=== PATIENT | male | born 1970 | race Caucasian/White ===

== ENCOUNTER 2018-05-26 08:42 | Emergency (ER) | payer BC ==
[2018-05-26] MEDS ORDERED: Lidocaine 1% 20 ML MDV INJECT ONE (09:03)
[2018-05-26] MEDS ORDERED: Diphtheria,Pertussis(Acell),Tetanus Vaccine 0.5 ML Syringe IM ONE (09:04)
[2018-05-26] MEDS ORDERED: Bacitracin/Neomycin/Polymyxin B Oint 0.9 GM U/D Packet TOP ONE (09:23)
--- NOTE | 2018-05-26 09:28 | EDM.PDOC ---
ED HPI GENERAL MEDICAL PROBLEM - General Chief Complaint: Laceration Stated Complaint: cut to right index finger Time Seen by Provider: 05/26/18 09:07 Source of Information: Reports: Patient History Limitations: Reports: No Limitations - History of Present Illness INITIAL COMMENTS - FREE TEXT/NARRATIVE: Patient presents to ER with a laceration to his right index finger. He was pulling on a throttle when the plastic piece came back and cut his hand. Has good range of motion with his finger, good sensation. Bleeding is controlled with pressure. Not current on his tetanus. Onset: Today, Sudden Duration: Minutes: Location: Reports: Upper Extremity, Right Quality: Reports: Throbbing Severity: Mild Context: Reports: Trauma Associated Symptoms: Reports: No Other Symptoms Right 2-Index finger Pain Score (Numeric/FACES): 2 - Related Data Allergies Allergy/AdvReac Type Severity Reaction Status Date / Time No Known Allergies Allergy Verified 05/26/18 08:53 Home Meds: Home Meds Esomeprazole Magnesium 40 mg PO DAILY 05/26/18 [History] Lifitegrast [Xiidra] 1 drop EYEBOTH BID 05/26/18 [History] Past Medical History HEENT History: Reports: Other (See Below) Other HEENT History: chronic dry eyes Gastrointestinal History: Reports: GERD - Past Surgical History HEENT Surgical History: Reports: LASIK GI Surgical History: Reports: Mallory Fundoplication Social & Family History - Tobacco Use Smoking Status *Q: Never Smoker - Recreational Drug Use Recreational Drug Use: No ED ROS GENERAL - Review of Systems Review Of Systems: ROS reveals no pertinent complaints other than HPI. ED EXAM, SKIN/RASH Exam: See Below Exam Limited By: No Limitations General Appearance: Alert, WD/WN, No Apparent Distress Extremities: Normal Range of Motion (good range of motion and strength in finger ) Neurological: Alert, Oriented, No Motor/Sensory Deficits Skin: Warm, Wound/Incision (V-shaped laceration to right index finger) ED SKIN PROCEDURES - Laceration/Wound Repair Right Digit - 2nd (Index) Lac/Wound length In cm: 3.5 Appearance: Irregular (v-shaped laceration), Clean Distal NVT: Neuro & Vascular Intact Anesthetic Type: Local Local Anesthesia - Lidocaine (Xylocaine): 1% Plain Local Anesthetic Volume: 4cc Skin Prep: Other (yesenia-isidra) Exploration/Debridement/Repair: Wound Explored, Explored to Base Closed with: Sutures Suture Size: 4-0 # of Sutures: 5 Suture Type: Nylon, Interrupted, Simple Sterile Dressing Applied: Nurse Tetanus Status Addressed: Yes Complications: No Course - Vital Signs Last Recorded V/S: Last Vital Signs Temp 96.9 F 05/26/18 08:45 Pulse 67 05/26/18 08:45 Resp 20 05/26/18 08:45 BP 126/76 05/26/18 08:45 Pulse Ox 98 05/26/18 08:45 - Orders/Labs/Meds Orders: Active Orders 24 hr Category Date Time Status Vaccines to be Administered [RC] PER UNIT ROUTINE Care 05/26/18 09:05 Active Meds: Medications Discontinued Medications Generic Name Dose Route Start Last Admin Trade Name Mary PRN Reason Stop Dose Admin Diphtheria/Tetanus/Acell Pertussis 0.5 ml 05/26/18 09:04 05/26/18 09:19 Adacel IM 05/26/18 09:05 0.5 ml .ONCE ONE Administration Lidocaine HCl 20 ml 05/26/18 09:03 05/26/18 09:18 Xylocaine 1% INJECT 05/26/18 09:04 20 ml ONETIME ONE Administration Neomycin/Polymyxin/Bacitracin 2 each 05/26/18 09:23 05/26/18 09:29 Triple Antibiotic Oint TOP 05/26/18 09:24 2 each ONETIME ONE Administration Departure - Departure Time of Disposition: 09:27 Disposition: Home, Self-Care 01 Condition: Good Clinical Impression: Laceration - Discharge Information *PRESCRIPTION DRUG MONITORING PROGRAM REVIEWED*: Not Applicable *COPY OF PRESCRIPTION DRUG MONITORING REPORT IN PATIENT NILS: Not Applicable Instructions: Laceration Care, Adult, [id number] Referrals: Roberto Lopez MD [Primary Care Provider] - Forms: ED Department Discharge Additional Instructions: 1. Keep wound clean and dry~ see wound care instructions 2. Keep wound covered while at work 3. Monitor for any signs of infection 4. Sutures out in 10 days 5. Call with any questions or concerns. - My Orders Last 24 Hours: My Active Orders 05/26/18 09:05 Vaccines to be Administered [RC] PER UNIT ROUTINE - Assessment/Plan Last 24 Hours: My Active Orders 05/26/18 09:05 Vaccines to be Administered [RC] PER UNIT ROUTINE
== END 2018-05-26 09:35 | disposition home or self-care (01) ==
LOC: CC.ED 08:42
DX: S61.210A Laceration without foreign body of right index finger without damage to nail, initial encounter (principal); W45.8XXA Other foreign body or object entering through skin, initial encounter; Z23 Encounter for immunization
CPT/HCPCS: 12002; 90471; 90715; 99282

== ENCOUNTER 2021-08-16 13:58 | Emergency (ER) | payer BC ==
--- NOTE | 2021-08-16 14:30 | EDM.PDOC ---
ED HPI GENERAL MEDICAL PROBLEM - General Chief Complaint: General Stated Complaint: NEEDS OXYGEN Time Seen by Provider: 08/16/21 14:10 Source of Information: Reports: Patient, Family History Limitations: Reports: No Limitations - History of Present Illness INITIAL COMMENTS - FREE TEXT/NARRATIVE: Mr. Gould is a 51-year-old male patient that presents to the emergency department stating he needs oxygen. His brought him and through the ambulance garage. They reported that his oxygen saturations were 78% at home. Patient with a Covid exposure and has had Covid symptoms since at least August 07. Patient states that he was very stuffed up with nasal congestion a week prior to . His tested positive for Covid and developed her symptoms on August 06. Patient lost his taste and smell on August 07. Patient states over the last 24 hours he feels like he has had problems catching his breath. States that he has associated dizziness. And reports "it feels like somebody help me underwater." States that he has been taking deyn-lou-gkzomle medications such as Mucinex, Sudafed, and NyQuil with little relief. Patient also reported that he had taken ivermectin but stopped that on August 09 and it was prescribed by somebody in [place]. 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 (see below) (Mucinex, NyQuil, Sudafed) - Related Data Allergies Allergy/AdvReac Type Severity Reaction Status Date / Time No Known Allergies Allergy Verified 08/16/21 14:07 Home Meds: Home Meds Esomeprazole Magnesium 40 mg PO DAILY 05/26/18 [History] Lifitegrast [Xiidra] 1 drop EYEBOTH BID 05/26/18 [History] Past Medical History HEENT History: Reports: Other (See Below) Other HEENT History: chronic dry eyes Gastrointestinal History: Reports: GERD - Infectious Disease History Infectious Disease History: Reports: None - Past Surgical History HEENT Surgical History: Reports: LASIK GI Surgical History: Reports: Mallory Fundoplication Social & Family History - Family History Family Medical History: No Pertinent Family History - Tobacco Use Tobacco Use Status *Q: Never Tobacco User - Caffeine Use Caffeine Use: Reports: None ED ROS GENERAL - Review of Systems Review Of Systems: See Below Constitutional: Reports: Fever, Weakness, Fatigue. Denies: Chills HEENT: Reports: Sinus Problem Respiratory: Reports: Shortness of Breath, Cough. Denies: Sputum Cardiovascular: Reports: Dyspnea on Exertion, Lightheadedness. Denies: Chest Pain, Blood Pressure Problem Endocrine: Reports: No Symptoms GI/Abdominal: Reports: Diarrhea. Denies: Abdominal Pain, Black Stool, Bloody Stool, Constipation, Nausea, Vomiting : Reports: No Symptoms Musculoskeletal: Reports: Other (Generalized body aches) Skin: Reports: Pallor. Denies: Cyanosis Neurological: Reports: Dizziness. Denies: Confusion, Headache, Numbness Psychiatric: Reports: No Symptoms. Denies: Confusion Hematologic/Lymphatic: Reports: No Symptoms Immunologic: Reports: No Symptoms ED EXAM, GENERAL - Physical Exam Exam: See Below Exam Limited By: No Limitations General Appearance: Alert, WD/WN, Mild Distress Eye Exam: Bilateral Eye: PERRL Ears: Normal External Exam Nose: Normal Inspection Throat/Mouth: Normal Voice, No Airway Compromise Head: Atraumatic, Normocephalic Neck: Normal Inspection, Supple, Non-Tender, Full Range of Motion Respiratory/Chest: Lungs Clear, No Accessory Muscle Use, Decreased Breath Sounds (Diminished right base) Cardiovascular: Normal Peripheral Pulses, Regular Rate, Rhythm, No Edema, No Gallop, No JVD, No Murmur, No Rub GI/Abdominal: Normal Bowel Sounds, Soft, Non-Tender, No Organomegaly, No Distention, No Abnormal Bruit, No Mass (Male) Exam: Deferred Rectal (Males) Exam: Deferred Back Exam: Normal Inspection Extremities: Normal Inspection, No Pedal Edema Neurological: Alert, Oriented, Normal Cognition. No: Confused Psychiatric: Normal Affect, Normal Mood Skin Exam: Warm, Dry, Intact Lymphatic: No Adenopathy Course - Vital Signs Last Recorded V/S: Last Vital Signs Temp 99 F 08/16/21 14:03 Pulse 79 08/16/21 14:03 Resp 16 08/16/21 14:03 BP 122/87 08/16/21 14:03 Pulse Ox 100 08/16/21 14:03 - Orders/Labs/Meds Orders: Active Orders 24 hr Category Date Time Status Chest 1V Frontal [CR] Stat Exams 08/16/21 14:34 Taken Sodium Chloride 0.9% [Normal Saline] 1,000 ml Med 08/16/21 14:33 Active IV .BOLUS Medication Orders Sodium Chloride (Normal Saline) 1,000 mls @ 999 mls/hr IV .BOLUS ONE Stop: 08/16/21 15:33 Last Admin: 08/16/21 14:52 Dose: 999 mls/hr Documented by: MILAGROS Labs: Laboratory Tests 08/16/21 Range/Units 13:59 SARS CoV-2 RNA Rapid TACHO Positive H (NEGATIVE) Meds: Medications Generic Name Dose Route Start Last Admin Trade Name Mary PRN Reason Stop Dose Admin Sodium Chloride 1,000 mls @ 999 mls/hr 08/16/21 14:33 08/16/21 14:52 Normal Saline IV 08/16/21 15:33 999 mls/hr .BOLUS ONE Administration - Re-Assessments/Exams Free Text/Narrative Re-Assessment/Exam: This 51-year-old male patient that presented to the emergency department with signs and symptoms of COVID since August 07. Patient presented because he had checked his oxygen saturations at home with a reading of 78%. We did test the patient for COVID in the emergency department and it is positive. Oxygen saturations in the emergency department have been 98 to 100% on room air. His heart rate has been in the upper 70s to low 80s. There is a possibility that they may have read their home oxygen sat monitor incorrectly. Patient has declined any further lab work. A chest x-ray was obtained and we will administer 1 L of normal saline. The portable chest x-ray was reviewed and there is no acute pneumothorax or obvious consolidations. There may appear to be evidence of a viral component consistent with COVID on x-ray. We will plan to discharge the patient home. Will encourage to push fluids. May use [id number] Tylenol and ibuprofen for comfort. Activity as tolerated. Treatment is symptomatic management of symptoms. May check oxygen saturations at home and if they are consistently below 90% you should be reevaluated. Call or follow-up with concerns or worsening condition. Departure - Departure Time of Disposition: 15:33 Disposition: Home, Self-Care 01 Condition: Good Clinical Impression: COVID-19 - Discharge Information *PRESCRIPTION DRUG MONITORING PROGRAM REVIEWED*: Not Applicable *COPY OF PRESCRIPTION DRUG MONITORING REPORT IN PATIENT NILS: Not Applicable Instructions: 10 Things You Can Do to Manage Your COVID-19 Symptoms at Home - [facility] (03/22/2021), COVID-19 Frequently Asked Questions Forms: ED Department Discharge Additional Instructions: 1. Drink plenty of fluids and stay hydrated. 2. May use [id number] Tylenol and ibuprofen for comfort. 3. Activity as tolerated. 4. Treatment is symptomatic management of symptoms. May check oxygen saturations at home and if they are consistently below 90% you should be reevaluated. 5. Call or follow-up with concerns or worsening condition. Sepsis Event Note (ED) - Evaluation Sepsis Screening Result: No Definite Risk - Focused Exam Vital Signs: Vital Signs Temp Pulse Resp BP Pulse Ox 08/16/21 14:03 99 F 79 16 122/87 100 - My Orders Last 24 Hours: My Active Orders 08/16/21 14:33 Sodium Chloride 0.9% [Normal Saline] 1,000 ml IV .BOLUS - Assessment/Plan Last 24 Hours: My Active Orders 08/16/21 14:33 Sodium Chloride 0.9% [Normal Saline] 1,000 ml IV .BOLUS
[2021-08-16] MEDS: Sodium Chloride 0.9% 1,000 ML IV ONE (14:52)
== END 2021-08-16 15:55 | disposition home or self-care (01) ==
LOC: CC.ED 13:58
DX: U07.1 COVID-19 (principal)
CPT/HCPCS: 71045; 99284; 99284-25; J7030; U0002

== ENCOUNTER 2023-03-29 10:50 | Emergency (ER) | payer BC ==
[2023-03-29] MEDS: Lidocaine 1% 5 ML VIAL INJECT ONE (11:08)
== END 2023-03-29 11:20 | disposition home or self-care (01) ==
LOC: CC.ED 10:50
DX: S60.453A Superficial foreign body of left middle finger, initial encounter (principal); K21.9 Gastro-esophageal reflux disease without esophagitis; Z86.16 Personal history of COVID-19; Z79.899 Other long term (current) drug therapy; W45.8XXA Other foreign body or object entering through skin, initial encounter
CPT/HCPCS: 99282; 99283; J3490

== ENCOUNTER 2024-12-16 12:15 | Day surgery (SDC) | payer BC ==
[~2024-12-16 12:15] MED LIST: Flumazenil 0.1 MG/ML 10 ML MDV ONE; Ketamine 200 MG/20 ML MDV ONE; Midazolam 1 MG/ML 2 ML SDV ONE; Propofol 200 MG/20 ML SDV ONE; fentaNYL 50 MCG/ML SDV ONE
[2024-12-16] MEDS: Lactated Ringers 1,000 ML IV SCH (12:43)
== END 2024-12-16 14:40 | disposition home or self-care (01) ==
LOC: CC.SDS 12:15
PROVIDERS: ATTEND Family Medicine
DX: Z12.11 Encounter for screening for malignant neoplasm of colon (principal); K21.00 Gastro-esophageal reflux disease with esophagitis, without bleeding; K29.50 Unspecified chronic gastritis without bleeding; K31.7 Polyp of stomach and duodenum; K57.30 Diverticulosis of large intestine without perforation or abscess without bleeding; K31.89 Other diseases of stomach and duodenum; K22.70 Barrett's esophagus without dysplasia; E78.5 Hyperlipidemia, unspecified; Z79.899 Other long term (current) drug therapy
CPT/HCPCS: 00813; 87081; J2250; J2704; J3010; J3490; J7120